=== PATIENT | male | born 1955 | race Caucasian/White ===

== ENCOUNTER → 2017-06-07 | Outpatient (CLI) | payer BC ==
[~2017-06-07] MED LIST: AMT100 PO; BUSP30TA2 PO
[2017-06-07 10:30] LABS: BASO % 0.2 %; BASO ABS # 0.03 K/uL (0-0.2); COMPLETE YES; EOS % 0.9 %; HEMATOCRIT 40.5 % (42-52); IG% 0.2 %; LYMPH % 15.1 %; LYMPH ABS # 1.92 K/uL (1.2-3.4); MEAN CORPUSCULAR HEMOGLOBIN 32.5 pg (25-34); MEAN CORPUSCULAR HGB CONC 35.3 g/dl (32-36); NEUT % 78.6 %; PLATELET COUNT 239 K/uL (130-400); WHITE BLOOD COUNT 12.74 K/uL (4.8-10.8)
[2017-06-07 11:03] LABS: BLOOD UREA NITROGEN 10 mg/dl (7-18); GLUCOSE 106 mg/dl (70-99)
[2017-06-07 11:04] LABS: ALT/SGPT 16 U/L (12-78); AST/SGOT 14 U/L (15-37); BUN/CREATININE RATIO 10.3 (10-20); CALCIUM 9.1 mg/dl (8.5-10.1); CARBON DIOXIDE 25 mmol/L (21-32); CHLORIDE 108 mmol/L (98-107); POTASSIUM 4.4 mmol/L (3.5-5.1); SODIUM 139 mmol/L (136-145)
[2017-06-07 11:09] LABS: ALB/GLOB RATIO 1.1 (0.9-2); ALKALINE PHOSPHATASE 93 U/L (45-117); CHOLESTEROL 164 mg/dl (0-200); CHOLESTEROL/HDL RATIO 3.1; HDL CHOLESTEROL 53 mg/dl; LDL CHOLESTEROL CALCULATED 100 mg/dl; TRIGLYCERIDES 56 mg/dl (0-150); VERY LOW DENSITY LIPOPROT CALC 11 mg/dl
== END | disposition home or self-care (01) ==
LOC: C.LAB1850 09:49
PROVIDERS: ATTEND Internal Medicine
DX: R03.0 Elevated blood-pressure reading, without diagnosis of hypertension (principal); R63.4 Abnormal weight loss; Z12.5 Encounter for screening for malignant neoplasm of prostate; Z13.220 Encounter for screening for lipoid disorders

== ENCOUNTER → 2017-08-12 | Outpatient (CLI) | payer BC ==
[2017-08-12 12:25] LABS: BASO % 0.5 %; BASO ABS # 0.05 K/uL (0-0.2); COMPLETE YES; EOS % 1.3 %; HEMATOCRIT 42.4 % (42-52); IG% 0.4 %; LYMPH % 22.4 %; LYMPH ABS # 2.43 K/uL (1.2-3.4); MEAN CELL VOLUME 94.6 fL (80-100); MEAN CORPUSCULAR HEMOGLOBIN 31.9 pg (25-34); MEAN CORPUSCULAR HGB CONC 33.7 g/dl (32-36); MEAN PLATELET VOLUME 8.8 fL (7.4-10.4); MONO % 6.2 %; NEUT % 69.2 %; PLATELET COUNT 246 K/uL (130-400); RED BLOOD COUNT 4.48 M/uL (4.7-6.1); WHITE BLOOD COUNT 10.87 K/uL (4.8-10.8)
== END | disposition home or self-care (01) ==
LOC: C.LAB1850 10:01
PROVIDERS: ATTEND Internal Medicine
DX: Z00.00 Encounter for general adult medical examination without abnormal findings (principal); D72.829 Elevated white blood cell count, unspecified

== ENCOUNTER → 2017-12-10 | Outpatient (CLI) | payer BC ==
[2017-12-10 12:23] LABS: BASO % 0.2 %; BASO ABS # 0.03 K/uL (0-0.2); EOS % 1.7 %; EOS ABS # 0.23 K/uL (0-0.5); HEMATOCRIT 41.4 % (42-52); HEMOGLOBIN 14.2 g/dL (14.0-18.0); IG# 0.04 K/uL (0.00-0.02); LYMPH % 17.8 %; LYMPH ABS # 2.43 K/uL (1.2-3.4); MEAN CELL VOLUME 92.4 fL (80-100); MEAN CORPUSCULAR HEMOGLOBIN 31.7 pg (25-34); MEAN CORPUSCULAR HGB CONC 34.3 g/dl (32-36); MONO % 5.1 %; NEUT % 74.9 %; NEUT ABS # 10.22 K/uL (1.4-6.5); PLATELET COUNT 261 K/uL (130-400); RED CELL DISTRIBUTION WIDTH CV 14.6 % (11.5-14.5); RED CELL DISTRIBUTION WIDTH SD 49.3 fL (36.4-46.3); WHITE BLOOD COUNT 13.65 K/uL (4.8-10.8)
== END | disposition home or self-care (01) ==
LOC: C.LAB1850 09:58
PROVIDERS: ATTEND Internal Medicine
DX: D72.829 Elevated white blood cell count, unspecified (principal)